=== PATIENT | male | born 1980 | race American Indian/Alaskan Native ===

== ENCOUNTER 2016-11-19 02:33 | Emergency (ER) | payer OTHER ==
[2016-11-19 02:40] VITALS: BMI 29.5
[2016-11-19 02:42] VITALS: BP 129/81; PULSE 115; RESP 18; TEMP 98.1; O2SAT 97
--- NOTE | 2016-11-19 03:01 | ED PDOC ---
HPI: General Adult Time Seen by Provider: 11/19/16 02:36 Chief Complaint (Nursing): Abnormal Skin Integrity Chief Complaint (Provider): "my butt is swollen" History Per: Patient History/Exam Limitations: no limitations Onset/Duration Of Symptoms: Days Have you had recent travel within the past 21 days to any of the following countries: [place], [place], [place] or [place]?: No Current Symptoms Are (Timing): Still Present Additional Complaint(s): Pt states when he wipes his BM he feels a swollen ball. Pt states sometimes its is a little tender. Past Medical History Reviewed: Historical Data, Nursing Documentation, Vital Signs Vital Signs: Last Vital Signs Temp 98.1 F 11/19/16 02:41 Pulse 115 H 11/19/16 02:41 Resp 18 11/19/16 02:41 BP 129/81 11/19/16 02:41 Pulse Ox 97 11/19/16 02:41 - Medical History PMH: No Chronic Diseases - Surgical History Surgical History: No Surg Hx - Family History Family History: States: Unknown Family Hx - Living Arrangements Living Arrangements: With Family - Social History Current smoker - smoking cessation education provided: No - Home Medications Home Medications: Ambulatory Orders Medication Instructions Recorded No Known Home Med 07/15/16 - Allergies Allergies/Adverse Reactions: Allergies Allergy/AdvReac Type Severity Reaction Status Date / Time No Known Allergies Allergy Verified 07/15/16 08:14 Review of Systems ROS Statement: Except As Marked, All Systems Reviewed And Found Negative Constitutional: Negative for: Fever Gastrointestinal: Positive for: Other Physical Exam - Reviewed Nursing Documentation Reviewed: Yes Vital Signs Reviewed: Yes - Physical Exam Appears: Positive for: Well, Non-toxic, No Acute Distress Head Exam: Positive for: ATRAUMATIC, NORMAL INSPECTION, NORMOCEPHALIC Skin: Positive for: Normal Color, Warm, DRY Eye Exam: Positive for: Normal appearance ENT: Positive for: Normal ENT Inspection Neck: Positive for: Normal, Painless ROM Cardiovascular/Chest: Positive for: Regular Rate, Rhythm Respiratory: Positive for: Normal Breath Sounds. Negative for: Accessory Muscle Use Gastrointestinal/Abdominal: Positive for: Normal Exam, Bowel Sounds, Soft, Tenderness, Other ((+) soft pink hemorrhoid ) Back: Positive for: Normal Inspection Extremity: Positive for: Normal ROM Neurologic/Psych: Positive for: Alert, Oriented - ECG O2 Sat by Pulse Oximetry: 97 Pulse Ox Interpretation: Normal Disposition - Clinical Impression Clinical Impression: External hemorrhoid - Patient ED Disposition Is Patient to be Admitted: No Counseled Patient/Family Regarding: Diagnosis, Need For Followup - Disposition Referrals: [facility] [Outside] Disposition: Routine/Home Disposition Time: 02:55 Condition: GOOD Instructions: Hemorrhoids (ED)
== END 2016-11-19 04:05 | disposition home or self-care (01) ==
LOC: H.ER 02:33
DX: K64.4 Residual hemorrhoidal skin tags (principal)

== ENCOUNTER 2017-12-14 09:06 | Inpatient (IN) | payer OTHER ==
[2017-12-14 09:17] VITALS: BMI 30.2
[2017-12-14] MEDS ORDERED: Iohexol 240 (50 ml) PO ONE (09:42)
--- NOTE | 2017-12-14 09:46 | ED PDOC ---
HPI: Abdomen Time Seen by Provider: 12/14/17 09:21 Chief Complaint (Nursing): Dizziness/Lightheaded History Per: Patient Onset/Duration Of Symptoms: Other (2 weeks) Current Symptoms Are (Timing): Still Present Context: Food Severity: Moderate Pain Scale Rating Of: 1 Location Of Pain/Discomfort: Epigastric Quality Of Discomfort: Gas Associated Symptoms: Nausea, Vomiting. denies: Diarrhea, Loss Of Appetite Exacerbating Factors: Food Alleviating Factors: None Additional Complaint(s): Epigastric fullness and early satiety after eating causing feeling of pressure up towards chest. Sxs x 2 weeks. Assoc with SOB and nausea and vomiting. Denies diarrhea or bloody or melanotic stools. Denies fever or weight loss. Has been avoiding solid foods x 2 weeks because they exacerbate sxs. Past Medical History Vital Signs: Last Vital Signs Temp 98.1 F 12/14/17 09:17 Pulse 109 H 12/14/17 09:17 Resp 17 12/14/17 09:17 BP 133/97 H 12/14/17 09:17 Pulse Ox 100 12/14/17 14:23 - Medical History PMH: No Chronic Diseases - Family History Family History: States: Unknown Family Hx - Home Medications Home Medications: Ambulatory Orders Medication Instructions Recorded No Known Home Med 07/15/16 - Allergies Allergies/Adverse Reactions: Allergies Allergy/AdvReac Type Severity Reaction Status Date / Time No Known Allergies Allergy Verified 07/15/16 08:14 Review of Systems ROS Statement: Except As Marked, All Systems Reviewed And Found Negative Constitutional: Negative for: Fever, Weight loss Respiratory: Positive for: Shortness of Breath Gastrointestinal: Positive for: Nausea, Vomiting, Abdominal Pain. Negative for : Melena, Hematochezia Physical Exam - Reviewed Nursing Documentation Reviewed: Yes Vital Signs Reviewed: Yes - Physical Exam Appears: Positive for: Non-toxic, No Acute Distress Head Exam: Positive for: ATRAUMATIC, NORMAL INSPECTION, NORMOCEPHALIC Skin: Positive for: Normal Color, Warm, DRY Eye Exam: Positive for: EOMI, Normal appearance, PERRL ENT: Positive for: Normal ENT Inspection Neck: Positive for: Normal, Painless ROM Cardiovascular/Chest: Positive for: Regular Rate, Rhythm Respiratory: Positive for: CNT, Normal Breath Sounds Gastrointestinal/Abdominal: Positive for: Soft, Distended. Negative for: Tenderness, Mass Back: Positive for: Normal Inspection Extremity: Positive for: Normal ROM Neurologic/Psych: Positive for: Alert, Oriented - Laboratory Results Result Diagrams: 12/14/17 10:02 12/14/17 10:02 - ECG O2 Sat by Pulse Oximetry: 100 Medical Decision Making Medical Decision Making: Time: 943 Plan: -- CT Abd Pelvis PO & IV -- EKG -- CMP -- Lipase -- CBC with differentials -- Chest XR Two Views -- Glucose, POC -- Iohexol 50 ml PO Time: 1022 CXR RESULTS FINDINGS: LUNGS: No active pulmonary disease. PLEURA: No significant pleural effusion identified. No pneumothorax apparent. CARDIOVASCULAR: Normal. OSSEOUS STRUCTURES: No significant abnormalities. VISUALIZED UPPER ABDOMEN: Normal. OTHER FINDINGS: None. IMPRESSION: No active disease. Time: 141 ABDOMEN/PELVIS CT RESULTS FINDINGS: LOWER THORAX: Unremarkable. LIVER: Unremarkable. No gross lesion or ductal dilatation. GALLBLADDER AND BILE DUCTS: Mild gallbladder wall thickening. Mild adjanent infiltration. Correlate clinically for acute cholecystitis.. PANCREAS: Unremarkable. No gross lesion or ductal dilatation. SPLEEN: Unremarkable. ADRENALS: Unremarkable. No mass. KIDNEYS AND URETERS: Unremarkable. No hydronephrosis. No solid mass. VASCULATURE: Unremarkable. No aortic aneurysm. BOWEL: Unremarkable. No obstruction. No gross mural thickening. APPENDIX: Normal appendix. PERITONEUM: Unremarkable. No free fluid. No free air. LYMPH NODES: Unremarkable. No enlarged lymph nodes. BLADDER: Unremarkable. REPRODUCTIVE: Unremarkable. BONES: No acute fracture. OTHER FINDINGS: None. IMPRESSION: Findings suspicious for cholecystitis. Please correlate clinically.. Scribe Attestation: Documented by Fabienne Plascencia, acting as a scribe for Dr. Oneil Kent MD. Provider Scribe Attestation: All medical record entries made by the Scribe were at my direction and personally dictated by me. I have reviewed the chart and agree that the record accurately reflects my personal performance of the history, physical exam, medical decision making, and the department course for this patient. I have also personally directed, reviewed, and agree with the discharge instructions and disposition. Disposition - Clinical Impression Clinical Impression: Cholecystitis - Patient ED Disposition Is Patient to be Admitted: Yes - Disposition Disposition Time: 14:25 Condition: FAIR Forms: [employer] (Syrian) - Pt Status Changed To: Hospital Disposition Of: Inpatient - Admit Certification Admit to Inpatient:: After my assessment, the patient will require hospitalization for at least two midnights. This is because of the severity of symptoms shown, intensity of services needed, and/or the medical risk in this patient being treated as an outpatient. - POA Present On Arrival: None
[2017-12-14 10:08] LABS: BASO # 0.1 K/uL (0.0-0.2); BASO % 0.7 % (0.0-2.0); EOS % 0.1 % (0.0-4.0); HEMOGLOBIN 14.9 g/dL (12.0-18.0); LYMPH # 2.7 K/uL (1.0-4.3); LYMPH % 23.3 % (20.0-40.0); MEAN CELL VOLUME 85.9 fl (80.0-94.0); MEAN CORPUSCULAR HEMOGLOBIN 28.5 pg (27.0-31.0); MEAN CORPUSCULAR HGB CONC 33.1 g/dL (33.0-37.0); MEAN PLATELET VOLUME 7.7 fl (7.2-11.7); MONO # 0.8 K/uL (0.0-0.8); NEUT % 68.9 % (50.0-75.0); NRBC % 0.1 % (0.0-0.0); RBC 5.25 Mil/uL (4.40-5.90); RED CELL DISTRIBUTION WIDTH 14.7 % (11.5-14.5); WHITE BLOOD COUNT 11.7 K/uL (4.8-10.8)
[2017-12-14 10:21] LABS: ALB/GLOB RATIO 1.5 (1.0-2.1); ALT/SGPT 101 U/L (21-72); AST/SGOT 85 U/L (17-59); BLOOD UREA NITROGEN 18 mg/dl (9-20); CALCIUM 9.3 mg/dL (8.4-10.2); GFR AFRICAN-AMERICAN > 60; GFR NON-AFRICAN AMERICAN > 60; LIPASE 48 U/L (23-300)
--- NOTE | 2017-12-14 10:23 | RAD ---
HISTORY: sob COMPARISON: No prior. TECHNIQUE: Chest PA and lateral FINDINGS: LUNGS: No active pulmonary disease. PLEURA: No significant pleural effusion identified. No pneumothorax apparent. CARDIOVASCULAR: Normal. OSSEOUS STRUCTURES: No significant abnormalities. VISUALIZED UPPER ABDOMEN: Normal. OTHER FINDINGS: None. IMPRESSION: No active disease.
[2017-12-14] MEDS ORDERED: Sodium Chloride 0.9% 100 ML ONE (12:24)
[2017-12-14] MEDS ORDERED: Iohexol 300 100 ML IJ ONE (12:24)
--- NOTE | 2017-12-14 14:14 | CT ---
PROCEDURE: CT Abdomen and Pelvis with contrast HISTORY: abd pain COMPARISON: None. TECHNIQUE: Contrast dose: Radiation dose: Total exam DLP = mGy-cm. This CT exam was performed using one or more of the following dose reduction techniques: Automated exposure control, adjustment of the mA and/or kV according to patient size, and/or use of iterative reconstruction technique. FINDINGS: LOWER THORAX: Unremarkable. LIVER: Unremarkable. No gross lesion or ductal dilatation. GALLBLADDER AND BILE DUCTS: Mild gallbladder wall thickening. Mild adjanent infiltration. Correlate clinically for acute cholecystitis.. PANCREAS: Unremarkable. No gross lesion or ductal dilatation. SPLEEN: Unremarkable. ADRENALS: Unremarkable. No mass. KIDNEYS AND URETERS: Unremarkable. No hydronephrosis. No solid mass. VASCULATURE: Unremarkable. No aortic aneurysm. BOWEL: Unremarkable. No obstruction. No gross mural thickening. APPENDIX: Normal appendix. PERITONEUM: Unremarkable. No free fluid. No free air. LYMPH NODES: Unremarkable. No enlarged lymph nodes. BLADDER: Unremarkable. REPRODUCTIVE: Unremarkable. BONES: No acute fracture. OTHER FINDINGS: None. IMPRESSION: Findings suspicious for cholecystitis. Please correlate clinically..
[2017-12-14] MEDS ORDERED: Piperacillin/Tazobact 3.375 GM in Sodium Chloride 0.9% 100 ML IVPB STA (14:21)
[2017-12-14] MEDS ORDERED: Piperacillin/Tazobact 3.375 gm Inj IVPB ONE (14:27)
[2017-12-14] MEDS ORDERED: HYDROmorphone 0.5 mg/0.5 ml ISec IVP PRN (15:07)
[2017-12-14] MEDS ORDERED: Oxycodone/Acetaminophen 5/325 mg Tab PO PRN (15:09)
--- NOTE | 2017-12-14 15:13 | CP.PCM.CON ---
History of Present Illness - History of Present Illness History of Present Illness: Surgery 37 M w ho HTN came with epigastric abd pain started 2 weeks ago. pain is associated with food. Located on EPigastric area. Doesn't radiate to back. Pain is worsen with movement. REports non bloody non bilious vomiting and nausea. Also reports weakness and SOB. Denies fever, chill, diarrhea, chest pain, recent travels, sick contact, hematuria, hematemesis, hematochezia. Surgery is consulted to evaluate for cholecystitis. CT of abd shows thicken GB wall. Denies h/o GERD, hiatal hernia. Hasn't had endoscopy before. PMH : HTN PSH: denies Meds: none Review of Systems - Review of Systems Review of Systems: See HPI Past Patient History - Past Social History Smoking Status: Heavy Smoker > 10 Cigarettes Daily - CARDIAC Hx Cardiac Disorders: No - PULMONARY Hx Respiratory Disorders: No - NEUROLOGICAL Hx Neurological Disorder: No - HEENT Hx HEENT Problems: No - RENAL Hx Chronic Kidney Disease: No - ENDOCRINE/METABOLIC Hx Endocrine Disorders: No - HEMATOLOGICAL/ONCOLOGICAL Hx Blood Disorders: No - INTEGUMENTARY Hx Dermatological Problems: No - MUSCULOSKELETAL/RHEUMATOLOGICAL Hx Musculoskeletal Disorders: No - GENITOURINARY/GYNECOLOGICAL Hx Genitourinary Disorders: No - PSYCHIATRIC Hx Psychophysiologic Disorder: No - SURGICAL HISTORY Hx Surgeries: No - ANESTHESIA Hx Anesthesia: No Meds Allergies/Adverse Reactions: Allergies Allergy/AdvReac Type Severity Reaction Status Date / Time No Known Allergies Allergy Verified 07/15/16 08:14 - Medications Medications: Current Medications Acetaminophen (Tylenol 325mg Tab) 650 mg PO Q6 PRN PRN Reason: Fever >100.4 F Hydromorphone HCl (Dilaudid) 1 mg IVP Q4 PRN PRN Reason: Pain, severe (8-10) Piperacillin Sod/Tazobactam (Sod 3.375 gm/ Sodium Chloride) 100 mls @ 100 mls/ hr IVPB STAT STA PRN Reason: Protocol Stop: 12/14/17 15:20 Last Admin: 12/14/17 14:45 Dose: 100 mls/hr Sodium Chloride (Sodium Chloride 0.9%) 1,000 mls @ 100 mls/hr IV .Q10H IVÁN Stop: 12/15/17 15:08 Ondansetron HCl (Zofran Inj) 4 mg IVP Q4 PRN PRN Reason: Nausea/Vomiting Physical Exam - Constitutional Appears: No Acute Distress - Head Exam Head Exam: ATRAUMATIC, NORMAL INSPECTION, NORMOCEPHALIC - Eye Exam Eye Exam: EOMI, Normal appearance, PERRL Pupil Exam: NORMAL ACCOMODATION, PERRL - ENT Exam ENT Exam: Mucous Membranes Moist, Normal Exam - Neck Exam Neck exam: Positive for: Normal Inspection - Respiratory Exam Respiratory Exam: Clear to Auscultation Bilateral, NORMAL BREATHING PATTERN - Cardiovascular Exam Cardiovascular Exam: REGULAR RHYTHM - GI/Abdominal Exam GI & Abdominal Exam: Guarding, Normal Bowel Sounds, Soft, Tenderness. absent: Distended, Firm, Hernia, Mass, Organomegaly, Pulsatile Mass, Rebound, Rigid Additional comments: Epigatric TTP. - Rectal Exam Rectal Exam: NORMAL INSPECTION - Extremities Exam Extremities exam: Positive for: normal inspection - Back Exam Back exam: NORMAL INSPECTION - Neurological Exam Neurological exam: Alert, CN II-XII Intact, Normal Gait, Oriented x3, Reflexes Normal - Psychiatric Exam Psychiatric exam: Normal Affect, Normal Mood - Skin Skin Exam: Dry, Intact, Normal Color, Warm Results - Vital Signs Recent Vital Signs: Last Vital Signs Temp 98.1 F 12/14/17 09:17 Pulse 109 H 12/14/17 09:17 Resp 17 12/14/17 09:17 BP 133/97 H 12/14/17 09:17 Pulse Ox 100 12/14/17 14:25 - Labs Result Diagrams: 12/14/17 10:02 12/14/17 10:02 Labs: Laboratory Results - last 24 hr 12/14/17 12/14/17 12/14/17 09:47 10:02 10:02 WBC 11.7 H RBC 5.25 Hgb 14.9 Hct 45.0 MCV 85.9 MCH 28.5 MCHC 33.1 RDW 14.7 H Plt Count 278 MPV 7.7 Neut % (Auto) 68.9 Lymph % (Auto) 23.3 [place] % (Auto) 7.0 Eos % (Auto) 0.1 Baso % (Auto) 0.7 Neut # (Auto) 8.0 H Lymph # (Auto) 2.7 [place] # (Auto) 0.8 Eos # (Auto) 0.0 Baso # (Auto) 0.1 Sodium 139 Potassium 4.8 Chloride 106 Carbon Dioxide 19 L Anion Gap 19 BUN 18 Creatinine 0.9 Est GFR ( Amer) > 60 Est GFR (Non-Af Amer) > 60 POC Glucose (mg/dL) 83 Random Glucose 95 Calcium 9.3 Total Bilirubin 0.7 AST 85 H ALT 101 H D Alkaline Phosphatase 58 Total Protein 6.7 Albumin 4.0 Globulin 2.7 Albumin/Globulin Ratio 1.5 Lipase 48 Assessment & Plan - Assessment and Plan (Free Text) Assessment: Symptomatic cholelithiasis v acute cholecystitis -Plan on OR on Sat -NPO after midnight on Saturday AM -IVF -f/u US KATIE Elmore's PA
--- NOTE | 2017-12-14 16:03 | CP.PCM.HP ---
History of Present Illness - History of Present Illness History of Present Illness: 37 yo , m , PMhx ETOH abuse, smoker. presents c/o epigastric abdominal pain started 3 weeks ago, intermittent , 5/10 intensity, not radiated, postprandial, associated with occs nausea, 1 nonbloddy vomiting today, heartburn and mild SOB when in pain . Pain is worse with food, on exertion while working, and on when turning to left in lying down position. He denies fever, chest pain,cough, dysuria,hx/o gastritis, odd food ingestion, h/xo chest pain. On evaluation in ED patient comfortable, not in distress, reports abd pain subsided with medication. PMD: CFH. Last seen by Dr GUZMAN 12/2016 PMH: Smoker. ETOH abuse Allergies: NKDA Meds: None Psurghx: None PFHx: Father has pacemaker and from [place] at age 49. PSHX: Smoker for 15 years 1 PPD. Cutting down to 5 cg/day recently. ETOH abuse by [employer] (drinks 3-4 beers per day, and usually washes it down with 2 shots of vodka, CAGE: 2/4 (clinically signifcant) notes 12/2016. Patient only reports social drinker occs. Denies rect drugs Code status: full code ED course: VS: HR: 109 BP: 133/97 Labs:CBC: wbc: 11.7 not lef shift deviation. , lipase normal EKG: sinus tachy. Biatrial enlargement. T wave abnormality. Consider lateral ischemia. T wave neg DII, AVF, V5-V6 Imaging: -CT abd: thickening gallbladder. Suspicious cholecystitis.-Us Abd: pending reports Meds: zosyn. Iv fluids NS 100ml/h Case seen by surgery. f/u US. For OR Saturday Present on Admission - Present on Admission Any Indicators Present on Admission: No History of DVT/PE: No History of Uncontrolled Diabetes: No Urinary Catheter: No Decubitus Ulcer Present: No Review of Systems - Review of Systems All systems: reviewed and no additional remarkable complaints except - Cardiovascular Cardiovascular: As Per HPI - Respiratory Respiratory: As Per HPI - Gastrointestinal Gastrointestinal: Abdominal Pain, Heartburn, Nausea Past Patient History - Past Social History Smoking Status: Heavy Smoker > 10 Cigarettes Daily - CARDIAC Hx Cardiac Disorders: No - PULMONARY Hx Respiratory Disorders: No - NEUROLOGICAL Hx Neurological Disorder: No - HEENT Hx HEENT Problems: No - RENAL Hx Chronic Kidney Disease: No - ENDOCRINE/METABOLIC Hx Endocrine Disorders: No - HEMATOLOGICAL/ONCOLOGICAL Hx Blood Disorders: No - INTEGUMENTARY Hx Dermatological Problems: No - MUSCULOSKELETAL/RHEUMATOLOGICAL Hx Musculoskeletal Disorders: No - GENITOURINARY/GYNECOLOGICAL Hx Genitourinary Disorders: No - PSYCHIATRIC Hx Psychophysiologic Disorder: No - SURGICAL HISTORY Hx Surgeries: No - ANESTHESIA Hx Anesthesia: No Meds Allergies/Adverse Reactions: Allergies Allergy/AdvReac Type Severity Reaction Status Date / Time No Known Allergies Allergy Verified 07/15/16 08:14 Physical Exam - Constitutional Appears: Non-toxic, No Acute Distress - Head Exam Head Exam: ATRAUMATIC, NORMOCEPHALIC - Eye Exam Eye Exam: Normal appearance - ENT Exam ENT Exam: Mucous Membranes Moist - Respiratory Exam Respiratory Exam: Clear to Auscultation Bilateral. absent: Rhonchi, Wheezes - Cardiovascular Exam Cardiovascular Exam: REGULAR RHYTHM, +S1, +S2 - GI/Abdominal Exam GI & Abdominal Exam: Normal Bowel Sounds, Soft, Tenderness. absent: Guarding Additional comments: Mild tenderness on epigastric area. no Todd sign - Extremities Exam Extremities exam: Positive for: normal inspection. Negative for: pedal edema - Neurological Exam Neurological exam: Alert, Oriented x3 - Psychiatric Exam Psychiatric exam: Normal Affect, Normal Mood - Skin Skin Exam: Intact Results - Vital Signs Recent Vital Signs: Last Vital Signs Temp 98.2 F 12/14/17 15:50 Pulse 75 12/14/17 15:50 Resp 16 12/14/17 15:50 BP 124/80 12/14/17 15:50 Pulse Ox 100 12/14/17 15:50 - Labs Result Diagrams: 12/14/17 10:02 12/14/17 10:02 Labs: Laboratory Results - last 24 hr 12/14/17 12/14/17 12/14/17 09:47 10:02 10:02 WBC 11.7 H RBC 5.25 Hgb 14.9 Hct 45.0 MCV 85.9 MCH 28.5 MCHC 33.1 RDW 14.7 H Plt Count 278 MPV 7.7 Neut % (Auto) 68.9 Lymph % (Auto) 23.3 [place] % (Auto) 7.0 Eos % (Auto) 0.1 Baso % (Auto) 0.7 Neut # (Auto) 8.0 H Lymph # (Auto) 2.7 [place] # (Auto) 0.8 Eos # (Auto) 0.0 Baso # (Auto) 0.1 Sodium 139 Potassium 4.8 Chloride 106 Carbon Dioxide 19 L Anion Gap 19 BUN 18 Creatinine 0.9 Est GFR ( Amer) > 60 Est GFR (Non-Af Amer) > 60 POC Glucose (mg/dL) 83 Random Glucose 95 Calcium 9.3 Total Bilirubin 0.7 AST 85 H ALT 101 H D Alkaline Phosphatase 58 Total Protein 6.7 Albumin 4.0 Globulin 2.7 Albumin/Globulin Ratio 1.5 Lipase 48 Assessment & Plan - Assessment and Plan (Free Text) Plan: 37 yo , m , no significant PMhx admitted for Acute cholecystitis Assessment/Plan 1) Acute cholecystitis -epigastric abd pain associated with n,v -leukocytosis 11.7. No left shift deviation, lipase normal -CT abd: thickening gallbladder. Suspicious cholecystitis. -Us Abd: pending reports -Surgery consult appreciated: patient for OR on Saturday -Liquid diet s/p Zosyn in ED. c/w zosyn, pepcid PO -f/u CBC, CMP 2) Transaminitis -may be reactive secondary to acute cholecystitis -AST .Alt 85/101 -F/u CMP 3) Abnormal EKG -may be secondary to early CAD -smoker, ETOH abuse, -FHx father from [place] at age 50 -EKG: sinus tachy. Biatrial enlargement. T wave abnormality. Consider lateral ischemia. T wave neg DII, AVF, V5-V6 -denies chest pain -troponin x 1 neg -may need Cardiology clearance before surgery -consider Echo -f/u EKG 4) Tabacco abuse Nicotine patch 5) ETOH abuse -with associated transaminitis 2/2 cholecystitis -f/u abd us 6) DVT Prophylaxis -SCD. Pending surgery
[2017-12-14] MEDS: Sodium Chloride 0.9% 1,000 ML IV SCH (17:13)
[2017-12-14] MEDS: Piperacillin/Tazobact 3.375 GM in Sodium Chloride 0.9% 100 ML IVPB SCH (21:52)
[2017-12-15] MEDS: Sodium Chloride 0.9% 1,000 ML IV SCH ×5 (01:00→23:51)
[2017-12-15] MEDS: Piperacillin/Tazobact 3.375 GM in Sodium Chloride 0.9% 100 ML IVPB SCH ×4 (04:27→21:45)
[2017-12-15 07:27] LABS: HEMOGLOBIN 14.2 g/dL (12.0-18.0); MEAN CELL VOLUME 87.1 fl (80.0-94.0); MEAN CORPUSCULAR HEMOGLOBIN 28.3 pg (27.0-31.0); MEAN CORPUSCULAR HGB CONC 32.5 g/dL (33.0-37.0); RBC 5.01 Mil/uL (4.40-5.90); RED CELL DISTRIBUTION WIDTH 14.7 % (11.5-14.5); WHITE BLOOD COUNT 9.9 K/uL (4.8-10.8)
[2017-12-15 07:40] LABS: LDL CHOLESTEROL 116 mg/dL (0-129)
[2017-12-15 07:54] LABS: ALB/GLOB RATIO 1.1 (1.0-2.1); ALBUMIN 3.1 g/dL (3.5-5.0); ALT/SGPT 90 U/L (21-72); AST/SGOT 51 U/L (17-59); BLOOD UREA NITROGEN 15 mg/dl (9-20); CALCIUM 8.7 mg/dL (8.4-10.2); GFR AFRICAN-AMERICAN > 60; GFR NON-AFRICAN AMERICAN > 60; HDL CHOLESTEROL 28 MG/DL (30-70)
--- NOTE | 2017-12-15 08:20 | CP.PCM.PN ---
<Nancie Diaz - Last Filed: 12/15/17 08:18> Subjective - Date & Time of Evaluation Date of Evaluation: 12/15/17 Time of Evaluation: 08:18 - Subjective Subjective: Surgery Patient seen and examined. Pain controlled. denies fever, nausea. Tolerating CLD. + void Objective - Vital Signs/Intake and Output Vital Signs (last 24 hours): Temp Pulse Resp BP Pulse Ox 98.6 F 95 H 20 139/99 H 98 12/15/17 00:12 12/15/17 00:12 12/15/17 00:12 12/15/17 00:12 12/15/17 00:12 - Medications Medications: Current Medications Acetaminophen (Tylenol 325mg Tab) 650 mg PO Q6 PRN PRN Reason: Fever >100.4 F Hydromorphone HCl (Dilaudid) 1 mg IVP Q4 PRN PRN Reason: Pain, severe (8-10) Sodium Chloride (Sodium Chloride 0.9%) 1,000 mls @ 100 mls/hr IV .Q10H [facility] Stop: 12/15/17 15:08 Last Admin: 12/15/17 04:36 Dose: 100 mls/hr Piperacillin Sod/Tazobactam (Sod 3.375 gm/ Sodium Chloride) 100 mls @ 100 mls/ hr IVPB Q6 IVÁN PRN Reason: Protocol Last Admin: 12/15/17 04:27 Dose: 100 mls/hr Nicotine (Nicoderm Cq) 1 patch TD DAILY [facility] Ondansetron HCl (Zofran Inj) 4 mg IVP Q4 PRN PRN Reason: Nausea/Vomiting Oxycodone/Acetaminophen (Percocet 5/325 Mg Tab) 2 tab PO Q4 PRN PRN Reason: Pain, moderate (4-7) Stop: 12/17/17 15:10 - Labs Labs: 12/15/17 05:30 12/15/17 05:30 - Constitutional Appears: No Acute Distress - Head Exam Head Exam: ATRAUMATIC, NORMAL INSPECTION, NORMOCEPHALIC - Eye Exam Eye Exam: EOMI, Normal appearance, PERRL Pupil Exam: NORMAL ACCOMODATION, PERRL - ENT Exam ENT Exam: Mucous Membranes Moist, Normal Exam - Neck Exam Neck Exam: Full ROM, Normal Inspection. absent: Lymphadenopathy - Respiratory Exam Respiratory Exam: Clear to Ausculation Bilateral, NORMAL BREATHING PATTERN - Cardiovascular Exam Cardiovascular Exam: REGULAR RHYTHM, +S1, +S2. absent: Murmur - GI/Abdominal Exam GI & Abdominal Exam: Soft, Tenderness, Normal Bowel Sounds. absent: Distended, Firm, Guarding, Rigid Additional comments: RUQ epigastric TTP - Extremities Exam Extremities Exam: Full ROM, Normal Capillary Refill, Normal Inspection. absent : Joint Swelling, Pedal Edema - Back Exam Back Exam: NORMAL INSPECTION - Neurological Exam Neurological Exam: Alert, Awake, CN II-XII Intact, Normal Gait, Oriented x3 - Psychiatric Exam Psychiatric exam: Normal Affect, Normal Mood - Skin Skin Exam: Dry, Intact, Normal Color, Warm Assessment and Plan - Assessment and Plan (Free Text) Assessment: Symptomatic cholelithiasis v acute cholecystitis US: thicken GB wall 4.5mm -Plan on OR on Sat -NPO after midnight on Saturday AM -IVF DW Dr. Elmore's PA <Fernando Elmore - Last Filed: 12/15/17 09:41> Objective - Vital Signs/Intake and Output Vital Signs (last 24 hours): Temp Pulse Resp BP Pulse Ox 98.2 F 89 16 125/89 99 12/15/17 09:00 12/15/17 09:00 12/15/17 09:00 12/15/17 09:00 12/15/17 09:00 - Medications Medications: Current Medications Acetaminophen (Tylenol 325mg Tab) 650 mg PO Q6 PRN PRN Reason: Fever >100.4 F Hydromorphone HCl (Dilaudid) 1 mg IVP Q4 PRN PRN Reason: Pain, severe (8-10) Sodium Chloride (Sodium Chloride 0.9%) 1,000 mls @ 100 mls/hr IV .Q10H [facility] Stop: 12/15/17 15:08 Last Admin: 12/15/17 04:36 Dose: 100 mls/hr Piperacillin Sod/Tazobactam (Sod 3.375 gm/ Sodium Chloride) 100 mls @ 100 mls/ hr IVPB Q6 IVÁN PRN Reason: Protocol Last Admin: 12/15/17 04:27 Dose: 100 mls/hr Nicotine (Nicoderm Cq) 1 patch TD DAILY [facility] Last Admin: 12/15/17 08:25 Dose: 1 patch Ondansetron HCl (Zofran Inj) 4 mg IVP Q4 PRN PRN Reason: Nausea/Vomiting Oxycodone/Acetaminophen (Percocet 5/325 Mg Tab) 2 tab PO Q4 PRN PRN Reason: Pain, moderate (4-7) Stop: 12/17/17 15:10 - Labs Labs: 12/15/17 05:30 12/15/17 05:30 Assessment and Plan - Assessment and Plan (Free Text) Plan: lft's rising, will get MRCP
--- NOTE | 2017-12-15 08:35 | US ---
HISTORY: cholecystitis COMPARISON: None. TECHNIQUE: Sonographic evaluation of the right upper quadrant of the abdomen. FINDINGS: LIVER: Measures cm in length. Normal echogenicity of the liver parenchyma. No mass. No intrahepatic bile duct dilatation. GALLBLADDER: Mild pericholecystic fluid ; no gross gallstones observed. COMMON BILE DUCT: Measures mm. No stones. No dilatation. PANCREAS: Unremarkable as visualized. No mass. No ductal dilatation. RIGHT KIDNEY: Measures cm in length. Normal echogenicity. No calculus, mass, or hydronephrosis. AORTA: No aneurysmal dilatation. IVC: Unremarkable. OTHER FINDINGS: None . IMPRESSION: Mild pericholecystic fluid ; no gross gallstones observed.
--- NOTE | 2017-12-15 13:57 | CP.PCM.PN ---
Subjective - Date & Time of Evaluation Date of Evaluation: 12/15/17 Time of Evaluation: 11:55 - Subjective Subjective: Patient seen and examined with attending at bedside. No acute events overnight. Patient states he feels better. Denies abdominal pain though occasional feelings of discomfort/bloating. Patient tolerating PO at this time. Denies fever, chills, nausea, vomiting, constipation, chest pain, sob, palpitations. 1 episode of loose stool overnight. No other complaints at this time. Surgery saw patient in AM. Objective - Vital Signs/Intake and Output Vital Signs (last 24 hours): Temp Pulse Resp BP Pulse Ox 98.2 F 89 16 125/89 99 12/15/17 09:00 12/15/17 09:00 12/15/17 09:00 12/15/17 09:00 12/15/17 09:00 - Medications Medications: Current Medications Acetaminophen (Tylenol 325mg Tab) 650 mg PO Q6 PRN PRN Reason: Fever >100.4 F Hydromorphone HCl (Dilaudid) 1 mg IVP Q4 PRN PRN Reason: Pain, severe (8-10) Sodium Chloride (Sodium Chloride 0.9%) 1,000 mls @ 100 mls/hr IV .Q10H [facility] Stop: 12/15/17 15:08 Last Admin: 12/15/17 13:13 Dose: Not Given Piperacillin Sod/Tazobactam (Sod 3.375 gm/ Sodium Chloride) 100 mls @ 100 mls/ hr IVPB Q6 IVÁN PRN Reason: Protocol Last Admin: 12/15/17 10:25 Dose: 100 mls/hr Nicotine (Nicoderm Cq) 1 patch TD DAILY [facility] Last Admin: 12/15/17 08:25 Dose: 1 patch Ondansetron HCl (Zofran Inj) 4 mg IVP Q4 PRN PRN Reason: Nausea/Vomiting Oxycodone/Acetaminophen (Percocet 5/325 Mg Tab) 2 tab PO Q4 PRN PRN Reason: Pain, moderate (4-7) Stop: 12/17/17 15:10 - Labs Labs: 12/15/17 05:30 12/15/17 05:30 - Constitutional Appears: Well, Non-toxic, No Acute Distress - Head Exam Head Exam: ATRAUMATIC, NORMAL INSPECTION, NORMOCEPHALIC - Eye Exam Eye Exam: Normal appearance - Respiratory Exam Respiratory Exam: Clear to Ausculation Bilateral, NORMAL BREATHING PATTERN - Cardiovascular Exam Cardiovascular Exam: REGULAR RHYTHM, +S1, +S2. absent: Murmur - GI/Abdominal Exam GI & Abdominal Exam: Soft, Tenderness (ruq/epigastric with grimacing noted, negative murphys sign), Normal Bowel Sounds - Extremities Exam Extremities Exam: Normal Inspection - Neurological Exam Neurological Exam: Alert, Awake, Oriented x3 - Psychiatric Exam Psychiatric exam: Normal Affect, Normal Mood - Skin Skin Exam: Dry, Intact, Normal Color, Warm Assessment and Plan - Assessment and Plan (Free Text) Assessment: 37 yo male smoker with no chronic diseases admitted for Acute cholecystitis. 1) Acute cholecystitis -epigastric abd pain associated with n,v -leukocytosis 11.7. No left shift deviation, lipase normal -no leukocytosis present today -CT abd: thickening gallbladder. Suspicious cholecystitis. -Us Abd: pending reports -Surgery recommendations appreciated, MRCP pending -c/w Liquid diet -c/w zosyn -c/w pepcid -c/w pain meds/antiemetics as needed -f/u CBC, CMP 2) Transaminitis -Improved AST/ALT though Total bilirubin increased to 1.6 -Surgery ordered MRCP, will likely be completed tomorrow -F/u CMP 3) Abnormal EKG -may be secondary to early CAD -smoker, ETOH abuse, Family Hx significant for father from [place] at age 50 -EKG: sinus tachy. Biatrial enlargement. T wave abnormality. Consider lateral ischemia. T wave neg DII, AVF, V5-V6 -repeat ekg shows the same -lipid panel reviewed -denies chest pain -troponin x 3 neg -Bat Person consulted, pending eval 4) Tobacco abuse -Nicotine patch 5) DVT Prophylaxis -SCD. Pending surgery
[2017-12-16] MEDS: Piperacillin/Tazobact 3.375 GM in Sodium Chloride 0.9% 100 ML IVPB SCH ×3 (04:59→17:34)
[2017-12-16] MEDS: Sodium Chloride 0.9% 1,000 ML IV SCH (05:00)
[2017-12-16 06:43] LABS: HEMOGLOBIN 14.2 g/dL (12.0-18.0); MEAN CELL VOLUME 86.3 fl (80.0-94.0); MEAN CORPUSCULAR HEMOGLOBIN 28.3 pg (27.0-31.0); MEAN CORPUSCULAR HGB CONC 32.8 g/dL (33.0-37.0); RBC 5.04 Mil/uL (4.40-5.90); RED CELL DISTRIBUTION WIDTH 14.4 % (11.5-14.5); WHITE BLOOD COUNT 10.4 K/uL (4.8-10.8)
[2017-12-16 07:00] LABS: ALB/GLOB RATIO 1.1 (1.0-2.1); ALBUMIN 2.9 g/dL (3.5-5.0); ALT/SGPT 79 U/L (21-72); AST/SGOT 35 U/L (17-59); BLOOD UREA NITROGEN 11 mg/dl (9-20); CALCIUM 8.5 mg/dL (8.4-10.2); GFR AFRICAN-AMERICAN > 60; GFR NON-AFRICAN AMERICAN > 60
[2017-12-16 07:09] LABS: INR 1.4 (0.9-1.2); PROTHROMBIN TIME 15.8 Seconds (9.8-13.1)
--- NOTE | 2017-12-16 07:30 | CP.PCM.PN ---
Subjective - Date & Time of Evaluation Date of Evaluation: 12/16/17 Time of Evaluation: 10:10 - Subjective Subjective: Patient seen and examined at bedside this morning. Pt had MRCP and HIDA done this morning pending results. No acute events overnight. Patient states he feels better except for occasional pain yesterday. States intermittent watery diarrhea for last few days. Denies current abdominal pain. Patient is on NPO this morning for lap jared tomorrow. Denies fever, chills, nausea, vomiting, constipation, chest pain, sob, palpitations. No other complaints at this time. Objective - Vital Signs/Intake and Output Vital Signs (last 24 hours): Temp Pulse Resp BP Pulse Ox 98.4 F 97 H 17 141/97 H 100 12/16/17 01:00 12/16/17 01:00 12/16/17 01:00 12/16/17 01:00 12/16/17 01:00 - Medications Medications: Current Medications Acetaminophen (Tylenol 325mg Tab) 650 mg PO Q6 PRN PRN Reason: Fever >100.4 F Hydromorphone HCl (Dilaudid) 1 mg IVP Q4 PRN PRN Reason: Pain, severe (8-10) Piperacillin Sod/Tazobactam (Sod 3.375 gm/ Sodium Chloride) 100 mls @ 100 mls/ hr IVPB Q6 IVÁN PRN Reason: Protocol Last Admin: 12/16/17 04:59 Dose: 100 mls/hr Sodium Chloride (Sodium Chloride 0.9%) 1,000 mls @ 125 mls/hr IV .Q8H [facility] Stop: 12/16/17 19:54 Last Admin: 12/16/17 05:00 Dose: Not Given Nicotine (Nicoderm Cq) 1 patch TD DAILY [facility] Last Admin: 12/15/17 08:25 Dose: 1 patch Ondansetron HCl (Zofran Inj) 4 mg IVP Q4 PRN PRN Reason: Nausea/Vomiting Oxycodone/Acetaminophen (Percocet 5/325 Mg Tab) 2 tab PO Q4 PRN PRN Reason: Pain, moderate (4-7) Stop: 12/17/17 15:10 - Labs Labs: 12/16/17 05:45 12/16/17 05:45 PT 15.8 Seconds (9.8-13.1) H 12/16/17 05:45 INR 1.4 (0.9-1.2) H 12/16/17 05:45 - Additional Findings Additional findings: - Constitutional Appears: Well, Non-toxic, No Acute Distress - Head Exam Head Exam: ATRAUMATIC, NORMAL INSPECTION, NORMOCEPHALIC - Eye Exam Eye Exam: Normal appearance - Respiratory Exam Respiratory Exam: Clear to Ausculation Bilateral, NORMAL BREATHING PATTERN - Cardiovascular Exam Cardiovascular Exam: REGULAR RHYTHM, +S1, +S2. absent: Murmur - GI/Abdominal Exam GI & Abdominal Exam: Soft, Mild tenderness in RUQ/epigastric area, no rebound tenderness or guarding. Negative murphys sign. Normal Bowel Sounds - Extremities Exam Extremities Exam: Normal Inspection - Neurological Exam Neurological Exam: Alert, Awake, Oriented x3 - Psychiatric Exam Psychiatric exam: Normal Affect, Normal Mood - Skin Skin Exam: Dry, Intact, Normal Color, Warm Assessment and Plan - Assessment and Plan (Free Text) Assessment: 37 yo male smoker with no chronic diseases admitted for Acute cholecystitis and has abnormal EKG 1) Acute cholecystitis -Epigastric abd pain associated with nausea and vomiting -leukocytosis 11.7 on admission. No left shift deviation, lipase normal -no leukocytosis present today -CT abd: thickening gallbladder. Suspicious cholecystitis. -Us Abd: pending reports -Surgery recommendations appreciated. -MRCP: Impression: findings remain suspicious for cholecystitis. No choledocholithiasis or dilatation of the intra or extrahepatic biliary tress. -f/u on HIDA, if HYDA is positive, lap jared tomorrow, if negative, outpatient surgery per surgery recommendation -c/w zosyn -c/w pepcid -c/w pain meds/antiemetics as needed 2) Transaminitis -Improved AST/ALT though Total bilirubin increased to 1.6 -MRCP: Impression: findings remain suspicious for cholecystitis. No choledocholithiasis or dilatation of the intra or extrahepatic biliary tress. -F/u CMP 3) Abnormal EKG -may be secondary to early CAD -smoker, ETOH abuse, Family Hx significant for father from [place] at age 50 -EKG: sinus tachy. Biatrial enlargement. T wave abnormality. Consider lateral ischemia. T wave neg DII, AVF, V5-V6 -repeat ekg shows the same -lipid panel reviewed -denies chest pain -troponin x 3 neg -Customer Care Assistant consult appreciated: cleared for surgery 4) Tobacco abuse -Nicotine patch 5) DVT Prophylaxis -SCD. Pending surgery
[2017-12-16] MEDS ORDERED: Gadodiamide 287 MG/ML VIAL (15ML) IV ONE (07:48)
--- NOTE | 2017-12-16 09:37 | CP.PCM.CON ---
History of Present Illness - History of Present Illness History of Present Illness: 37 y/o male scheduled for cholecstectomy Cardiology consult called for clearance Pt denies any cardiac Hx Denies chest pain/MADSEN/SOB/Palpitations EKG: NSR / inverted T waves Most likely represents normal variant Past Patient History - Past Medical History & Family History Past Medical History?: No - Past Social History Smoking Status: Heavy Smoker > 10 Cigarettes Daily - CARDIAC Hx Cardiac Disorders: No - PULMONARY Hx Respiratory Disorders: No - NEUROLOGICAL Hx Neurological Disorder: No - HEENT Hx HEENT Problems: No - RENAL Hx Chronic Kidney Disease: No - ENDOCRINE/METABOLIC Hx Endocrine Disorders: No - HEMATOLOGICAL/ONCOLOGICAL Hx Blood Disorders: No - INTEGUMENTARY Hx Dermatological Problems: No - MUSCULOSKELETAL/RHEUMATOLOGICAL Hx Musculoskeletal Disorders: No - GENITOURINARY/GYNECOLOGICAL Hx Genitourinary Disorders: No - PSYCHIATRIC Hx Psychophysiologic Disorder: No - SURGICAL HISTORY Hx Surgeries: No - ANESTHESIA Hx Anesthesia: No Meds Allergies/Adverse Reactions: Allergies Allergy/AdvReac Type Severity Reaction Status Date / Time No Known Allergies Allergy Verified 07/15/16 08:14 - Medications Medications: Current Medications Acetaminophen (Tylenol 325mg Tab) 650 mg PO Q6 PRN PRN Reason: Fever >100.4 F Hydromorphone HCl (Dilaudid) 1 mg IVP Q4 PRN PRN Reason: Pain, severe (8-10) Piperacillin Sod/Tazobactam (Sod 3.375 gm/ Sodium Chloride) 100 mls @ 100 mls/ hr IVPB Q6 IVÁN PRN Reason: Protocol Last Admin: 12/16/17 09:14 Dose: 100 mls/hr Sodium Chloride (Sodium Chloride 0.9%) 1,000 mls @ 125 mls/hr IV .Q8H [facility] Stop: 12/16/17 19:54 Last Admin: 12/16/17 05:00 Dose: Not Given Nicotine (Nicoderm Cq) 1 patch TD DAILY [facility] Last Admin: 12/16/17 09:14 Dose: 1 patch Ondansetron HCl (Zofran Inj) 4 mg IVP Q4 PRN PRN Reason: Nausea/Vomiting Oxycodone/Acetaminophen (Percocet 5/325 Mg Tab) 2 tab PO Q4 PRN PRN Reason: Pain, moderate (4-7) Stop: 12/17/17 15:10 Physical Exam - Respiratory Exam Respiratory Exam: NORMAL BREATHING PATTERN - Cardiovascular Exam Cardiovascular Exam: REGULAR RHYTHM Results - Vital Signs Recent Vital Signs: Last Vital Signs Temp 98.1 F 12/16/17 07:57 Pulse 95 H 12/16/17 07:57 Resp 20 12/16/17 07:57 BP 139/98 H 12/16/17 07:57 Pulse Ox 100 12/16/17 07:57 - Labs Result Diagrams: 12/16/17 05:45 12/16/17 05:45 Labs: Laboratory Results - last 24 hr 12/16/17 12/16/17 12/16/17 05:45 05:45 05:45 WBC 10.4 RBC 5.04 Hgb 14.2 Hct 43.5 MCV 86.3 MCH 28.3 MCHC 32.8 L RDW 14.4 Plt Count 264 PT 15.8 H INR 1.4 H Sodium 137 Potassium 3.8 Chloride 105 Carbon Dioxide 19 L Anion Gap 17 BUN 11 Creatinine 1.1 Est GFR ( Amer) > 60 Est GFR (Non-Af Amer) > 60 Random Glucose 81 Calcium 8.5 Total Bilirubin 1.1 AST 35 ALT 79 H Alkaline Phosphatase 43 Total Protein 5.5 L Albumin 2.9 L Globulin 2.6 Albumin/Globulin Ratio 1.1 Assessment & Plan (1) Cholecystitis Assessment and Plan: The patient is cleared for Surgery Status: Acute
--- NOTE | 2017-12-16 10:34 | CP.PCM.PN ---
<Edilberto Merritt - Last Filed: 12/16/17 10:32> Subjective - Date & Time of Evaluation Date of Evaluation: 12/16/17 Time of Evaluation: 07:40 - Subjective Subjective: Patient seen and examined. Reports abdominal pain has improved. For MRCP this AM. Objective - Vital Signs/Intake and Output Vital Signs (last 24 hours): Temp Pulse Resp BP Pulse Ox 98.1 F 95 H 20 139/98 H 100 12/16/17 07:57 12/16/17 07:57 12/16/17 07:57 12/16/17 07:57 12/16/17 07:57 - Medications Medications: Current Medications Acetaminophen (Tylenol 325mg Tab) 650 mg PO Q6 PRN PRN Reason: Fever >100.4 F Hydromorphone HCl (Dilaudid) 1 mg IVP Q4 PRN PRN Reason: Pain, severe (8-10) Piperacillin Sod/Tazobactam (Sod 3.375 gm/ Sodium Chloride) 100 mls @ 100 mls/ hr IVPB Q6 IVÁN PRN Reason: Protocol Last Admin: 12/16/17 09:14 Dose: 100 mls/hr Sodium Chloride (Sodium Chloride 0.9%) 1,000 mls @ 125 mls/hr IV .Q8H [facility] Stop: 12/16/17 19:54 Last Admin: 12/16/17 05:00 Dose: Not Given Nicotine (Nicoderm Cq) 1 patch TD DAILY [facility] Last Admin: 12/16/17 09:14 Dose: 1 patch Ondansetron HCl (Zofran Inj) 4 mg IVP Q4 PRN PRN Reason: Nausea/Vomiting Oxycodone/Acetaminophen (Percocet 5/325 Mg Tab) 2 tab PO Q4 PRN PRN Reason: Pain, moderate (4-7) Stop: 12/17/17 15:10 - Labs Labs: 12/16/17 05:45 12/16/17 05:45 PT 15.8 Seconds (9.8-13.1) H 12/16/17 05:45 INR 1.4 (0.9-1.2) H 12/16/17 05:45 - Constitutional Appears: No Acute Distress - Head Exam Head Exam: NORMOCEPHALIC - Eye Exam Eye Exam: EOMI, Normal appearance - ENT Exam ENT Exam: Mucous Membranes Moist - Respiratory Exam Respiratory Exam: NORMAL BREATHING PATTERN - Cardiovascular Exam Cardiovascular Exam: +S1, +S2 - GI/Abdominal Exam GI & Abdominal Exam: Soft - Neurological Exam Neurological Exam: Alert, Awake, Oriented x3 - Psychiatric Exam Psychiatric exam: Normal Mood - Skin Skin Exam: Dry, Intact, Warm Assessment and Plan - Assessment and Plan (Free Text) Assessment: 37M with cholecystitis Plan: -NPO -IVF -Abx -F/u MRCP -F/u HIDA -If HIDA + will schedule patient for laparoscopic cholecystectomy tomorrow -Otherwise will have it done outpatient -Further recs per Dr. Ramon [id number] <Higinio Ramon - Last Filed: 12/16/17 11:07> Subjective - Date & Time of Evaluation Time of Evaluation: 09:45 - Subjective Subjective: Patient was seen and examined at the bedside. Agree with resident's note above. Objective - Vital Signs/Intake and Output Vital Signs (last 24 hours): Temp Pulse Resp BP Pulse Ox 98.1 F 95 H 20 139/98 H 100 12/16/17 07:57 12/16/17 07:57 12/16/17 07:57 12/16/17 07:57 12/16/17 07:57 - Medications Medications: Current Medications Acetaminophen (Tylenol 325mg Tab) 650 mg PO Q6 PRN PRN Reason: Fever >100.4 F Hydromorphone HCl (Dilaudid) 1 mg IVP Q4 PRN PRN Reason: Pain, severe (8-10) Piperacillin Sod/Tazobactam (Sod 3.375 gm/ Sodium Chloride) 100 mls @ 100 mls/ hr IVPB Q6 IVÁN PRN Reason: Protocol Last Admin: 12/16/17 09:14 Dose: 100 mls/hr Sodium Chloride (Sodium Chloride 0.9%) 1,000 mls @ 125 mls/hr IV .Q8H [facility] Stop: 12/16/17 19:54 Last Admin: 12/16/17 05:00 Dose: Not Given Nicotine (Nicoderm Cq) 1 patch TD DAILY [facility] Last Admin: 12/16/17 09:14 Dose: 1 patch Ondansetron HCl (Zofran Inj) 4 mg IVP Q4 PRN PRN Reason: Nausea/Vomiting Oxycodone/Acetaminophen (Percocet 5/325 Mg Tab) 2 tab PO Q4 PRN PRN Reason: Pain, moderate (4-7) Stop: 12/17/17 15:10 - Labs Labs: 12/16/17 05:45 12/16/17 05:45 PT 15.8 Seconds (9.8-13.1) H 12/16/17 05:45 INR 1.4 (0.9-1.2) H 12/16/17 05:45 - GI/Abdominal Exam Additional comments: soft, NT, ND, BS+, no rebound, no guarding, negative Todd's sign
--- NOTE | 2017-12-16 12:06 | MRI ---
PROCEDURE: Magnetic Resonance Cholangiopancreatography HISTORY: COMPARISON: Abdomen and pelvis CT examination as well as limited abdomen ultrasound 12/14/2017.. TECHNIQUE: Multiplanar, multisequence MR images of the abdomen were obtained, including heavily T2 weighted MRCP images of the biliary system. Rotating maximum intensity projection images of the biliary system were generated. FINDINGS: MRCP: The common bile duct is of a normal caliber. No evidence of choledocholithiasis. No intrahepatic biliary ductal dilatation. LIVER: No suspicious signal abnormality or contrast enhancement. GALLBLADDER: Gallbladder is mildly distended with pericholecystic fluid reiterated and brisk mural enhancement. No cholelithiasis appreciated this time. Findings remain suspicious for cholecystitis nevertheless. SPLEEN: Unremarkable. PANCREAS: Unremarkable. ADRENALS: Unremarkable. KIDNEYS: Unremarkable. AORTA: No aneurysm. ASCITES: None. OTHER FINDINGS: Mild bilateral pleural effusions are identified greater the right than left sides. IMPRESSION: Findings remain suspicious for cholecystitis. No choledocholithiasis or dilatation of the intra or extrahepatic biliary tree.
[2017-12-16 16:15] VITALS: BP 131/92; PULSE 100; RESP 18; TEMP 97.9; O2SAT 96
--- NOTE | 2017-12-16 16:47 | CARD ---
APPROVED REPORT EKG Measurement Heart [id number] ME [id number] [id number] <Conclusion> Sinus tachycardia Biatrial enlargement T wave abnormality, consider inferolateral ischemia Abnormal ECG
--- NOTE | 2017-12-16 16:57 | CARD ---
APPROVED REPORT EKG Measurement Heart [id number] MA [id number] <Conclusion> Sinus tachycardia Biatrial enlargement T wave abnormality, consider lateral ischemia Abnormal ECG
--- NOTE | 2017-12-16 18:12 | CP.PCM.DIS ---
Provider - Provider Date of Admission: 12/14/17 14:23 Attending physician: Tiffany Phillips MD Time Spent in preparation of Discharge (in minutes): 30 Diagnosis - Discharge Diagnosis (1) Cholecystitis Status: Acute (2) Hypertension Status: Suspected Hospital Course - Lab Results Lab Results: Micro Results 12/14/17 14:40 Blood-Venous Blood Culture - Preliminary NO GROWTH AFTER 48 HOURS Most Recent Lab Values WBC 10.4 K/uL (4.8-10.8) 12/16/17 05:45 RBC 5.04 Mil/uL (4.40-5.90) 12/16/17 05:45 Hgb 14.2 g/dL (12.0-18.0) 12/16/17 05:45 Hct 43.5 % (35.0-51.0) 12/16/17 05:45 MCV 86.3 fl (80.0-94.0) 12/16/17 05:45 MCH 28.3 pg (27.0-31.0) 12/16/17 05:45 MCHC 32.8 g/dL (33.0-37.0) L 12/16/17 05:45 RDW 14.4 % (11.5-14.5) 12/16/17 05:45 Plt Count 264 K/uL (130-400) 12/16/17 05:45 MPV 7.7 fl (7.2-11.7) 12/14/17 10:02 Neut % (Auto) 68.9 % (50.0-75.0) 12/14/17 10:02 Lymph % (Auto) 23.3 % (20.0-40.0) 12/14/17 10:02 Carlton % (Auto) 7.0 % (0.0-10.0) 12/14/17 10:02 Eos % (Auto) 0.1 % (0.0-4.0) 12/14/17 10:02 Baso % (Auto) 0.7 % (0.0-2.0) 12/14/17 10:02 Neut # (Auto) 8.0 K/uL (1.8-7.0) H 12/14/17 10:02 Lymph # (Auto) 2.7 K/uL (1.0-4.3) 12/14/17 10:02 Carlton # (Auto) 0.8 K/uL (0.0-0.8) 12/14/17 10:02 Eos # (Auto) 0.0 K/uL (0.0-0.7) 12/14/17 10:02 Baso # (Auto) 0.1 K/uL (0.0-0.2) 12/14/17 10:02 PT 15.8 Seconds (9.8-13.1) H 12/16/17 05:45 INR 1.4 (0.9-1.2) H 12/16/17 05:45 Sodium 137 mmol/l (132-148) 12/16/17 05:45 Potassium 3.8 MMOL/L (3.6-5.0) 12/16/17 05:45 Chloride 105 mmol/L (98-107) 12/16/17 05:45 Carbon Dioxide 19 mmol/L (22-30) L 12/16/17 05:45 Anion Gap 17 (10-20) 12/16/17 05:45 BUN 11 mg/dl (9-20) 12/16/17 05:45 Creatinine 1.1 mg/dl (0.8-1.5) 12/16/17 05:45 Est GFR ( Amer) > 60 12/16/17 05:45 Est GFR (Non-Af Amer) > 60 12/16/17 05:45 POC Glucose (mg/dL) 83 mg/dL (65-110) 12/14/17 09:47 Random Glucose 81 mg/dL (75-110) 12/16/17 05:45 Calcium 8.5 mg/dL (8.4-10.2) 12/16/17 05:45 Total Bilirubin 1.1 mg/dl (0.2-1.3) 12/16/17 05:45 AST 35 U/L (17-59) 12/16/17 05:45 ALT 79 U/L (21-72) H 12/16/17 05:45 Alkaline Phosphatase 43 U/L (38-126) 12/16/17 05:45 Troponin I 0.0190 ng/mL (0.00-0.120) 12/15/17 07:10 Total Protein 5.5 G/DL (6.3-8.2) L 12/16/17 05:45 Albumin 2.9 g/dL (3.5-5.0) L 12/16/17 05:45 Globulin 2.6 gm/dL (2.2-3.9) 12/16/17 05:45 Albumin/Globulin Ratio 1.1 (1.0-2.1) 12/16/17 05:45 Triglycerides 112 mg/DL (0-149) 12/15/17 05:30 Cholesterol 159 mg/dL (0-199) 12/15/17 05:30 LDL Cholesterol Direct 116 mg/dL (0-129) 12/15/17 05:30 HDL Cholesterol 28 MG/DL (30-70) L 12/15/17 05:30 Lipase 48 U/L (23-300) 12/14/17 10:02 - Hospital Course Hospital Course: 37 yo male with a pmhx of ETOH use disorder, tobacco use disorder presents to [facility] ED on 12/14/17 c/o epigastric abdominal pain started 3 weeks ago, intermittent , 5/10 intensity, not radiated, postprandial, associated with occs nausea, 1 nonbloddy vomiting today, heartburn and mild SOB when in pain . Pain is worse with food, on exertion while working, and on when turning to left in lying down position. He denies fever, chest pain,cough,dysuria,hx/o gastritis, odd food ingestion, h/xo chest pain. Pt was admitted for suspected cholecystitis. CT of abdomen and pelvis showed findings that are suspicious for cholecystitis. Pt's LFT were mildly elevated, MRCP was done which showed cholecytitis but no gallstone or bile duct pathology. HIDA scan (preliminary findings) was negative for cholecystitis. Pt's vitals has been stable and afebrile. Pt was able to tolerate regular diet today and stable to discharge home w/ f/u with outpatient surgery for elective lap jared. Discharge medications: none given Discharge Exam - Head Exam Head Exam: NORMOCEPHALIC Discharge Plan - Follow Up Plan Condition: STABLE Disposition: HOME/ ROUTINE Instructions: Gallstones (DC), Hypertension (DC), Hypertension (GEN) Additional Instructions: Please call [facility] - [phone] for follow-up appointment
--- NOTE | 2017-12-17 09:36 | NM ---
PROCEDURE: Nuclear Medicine Hepatobiliary Scan HISTORY: r/o cholecystitis COMPARISON: 12/14/2012 abdominal ultrasound TECHNIQUE: 6.3 mCi of technetium 99m Mebrofenin was administered intravenously. Planar images of the abdomen were obtained at 5 min intervals to 60 mins. Delayed images were also obtained. FINDINGS: LIVER: Timely and homogenous uptake. COMMON BILE DUCT: identified at 5 mins. GALLBLADDER: identified at 5 mins. SMALL BOWEL: Identified at 30 mins. IMPRESSION: Normal Hepatobiliary Scan. The cystic duct is patent.
== END 2017-12-16 19:00 | disposition home or self-care (01) | DRG 208 ==
LOC: H.ER 09:06 → H.ERHOLD 14:23 → H.MEDSURG1 16:06
PROVIDERS: ADMIT Family Medicine Geriatric Medicine; ATTEND Family Medicine Geriatric Medicine
DX: K80.00 Calculus of gallbladder with acute cholecystitis without obstruction (principal); F10.10 Alcohol abuse, uncomplicated; I10 Essential (primary) hypertension; F17.210 Nicotine dependence, cigarettes, uncomplicated; R74.0 Nonspecific elevation of levels of transaminase and lactic acid dehydrogenase [LDH]; R94.31 Abnormal electrocardiogram [ECG] [EKG]

== ENCOUNTER 2018-06-18 06:07 | Emergency (ER) | payer OTHER ==
[2018-06-18 06:07] VITALS: BMI 30.2
[2018-06-18 07:43] LABS: BASO # 0.1 K/uL (0.0-0.2); BASO % 0.8 % (0.0-2.0); EOS # 0.1 K/uL (0.0-0.7); EOS % 0.5 % (0.0-4.0); HEMOGLOBIN 13.9 g/dL (12.0-18.0); LYMPH # 1.9 K/uL (1.0-4.3); LYMPH % 16.5 % (20.0-40.0); MEAN CELL VOLUME 88.3 fl (80.0-94.0); MEAN CORPUSCULAR HEMOGLOBIN 28.9 pg (27.0-31.0); MEAN CORPUSCULAR HGB CONC 32.7 g/dL (33.0-37.0); MEAN PLATELET VOLUME 8.9 fl (7.2-11.7); MONO # 0.8 K/uL (0.0-0.8); NEUT # 8.6 K/uL (1.8-7.0); NEUT % 75.2 % (50.0-75.0); RBC 4.81 Mil/uL (4.40-5.90); RED CELL DISTRIBUTION WIDTH 15.6 % (11.5-14.5); WHITE BLOOD COUNT 11.4 K/uL (4.8-10.8)
--- NOTE | 2018-06-18 07:48 | ED PDOC ---
HPI: Abdomen Time Seen by Provider: 06/18/18 07:03 Chief Complaint (Nursing): Abdominal Pain Chief Complaint (Provider): Abdominal Pain History Per: Patient History/Exam Limitations: no limitations Onset/Duration Of Symptoms: Hrs Current Symptoms Are (Timing): Still Present Location Of Pain/Discomfort: RUQ, RLQ Quality Of Discomfort: Sharp, Cramping Associated Symptoms: Nausea. denies: Chills, Vomiting, Diarrhea Additional Complaint(s): Jorge Das is a 37 year old male with a past medical history of hypertension, hyperlipidemia, and congestive heart failure who is presenting to the ED for evaluation of non-radiating right sided abdominal pain onset 1 hour ago. Patient states that he was sleeping and the sharp cramping pain woke him up and he was unable to walk. He reports that he lives with his cousin who helped him up and states that he ate normally yesterday. Patient describes feeling like he was burning up and reports mild nausea. He denies any vomiting, diarrhea, chills, or shortness of breath. PMD: none provided Learning Specialist: Dr. Sánchez Basilio Past Medical History Reviewed: Historical Data, Nursing Documentation, Vital Signs Vital Signs: Last Vital Signs Temp 99.7 F H 06/18/18 06:33 Pulse 92 H 06/18/18 06:33 Resp 20 06/18/18 06:33 BP 104/68 06/18/18 06:33 Pulse Ox 98 06/18/18 06:33 - Medical History PMH: CHF, Gall Bladder Disease (choleystitis), HTN, Hyperlipidemia Denies: Chronic Kidney Disease - Surgical History Surgical History: Pacemaker - Family History Family History: States: Unknown Family Hx - Social History Current smoker - smoking cessation education provided: No Ex-Smoker (has not smoked in the last 12 months): Yes Alcohol: None Drugs: Denies - Immunization History Hx Tetanus Toxoid Vaccination: No Hx Influenza Vaccination: No Hx Pneumococcal Vaccination: No - Home Medications Home Medications: Ambulatory Orders Medication Instructions Recorded Aspirin [Aspirin Chewable] 81 mg PO DAILY #30 chew 06/15/18 Carvedilol [Coreg] 6.25 mg PO BID #60 tab 06/15/18 Furosemide [Lasix] 40 mg PO BID #60 tab 06/15/18 Lisinopril [Zestril] 20 mg PO DAILY #30 tab 06/15/18 Rosuvastatin Calcium [Crestor] 5 mg PO QPM #30 tab 06/15/18 Spironolactone [Aldactone] 50 mg PO DAILY #30 tab 06/15/18 Naproxen [Naprosyn] 500 mg PO BID PRN #20 tablet 06/18/18 - Allergies Allergies/Adverse Reactions: Allergies Allergy/AdvReac Type Severity Reaction Status Date / Time No Known Allergies Allergy Verified 06/13/18 09:55 Review of Systems ROS Statement: Except As Marked, All Systems Reviewed And Found Negative Constitutional: Positive for: Fever ("burning up"). Negative for: Chills Respiratory: Negative for: Shortness of Breath Gastrointestinal: Positive for: Nausea, Abdominal Pain. Negative for: Vomiting, Diarrhea Physical Exam - Reviewed Nursing Documentation Reviewed: Yes Vital Signs Reviewed: Yes - Physical Exam Appears: Positive for: Non-toxic, No Acute Distress Head Exam: Positive for: ATRAUMATIC, NORMAL INSPECTION, NORMOCEPHALIC Skin: Positive for: Normal Color, Warm, DRY Eye Exam: Positive for: EOMI, Normal appearance, PERRL ENT: Positive for: Normal ENT Inspection Neck: Positive for: Normal, Painless ROM, Supple Cardiovascular/Chest: Positive for: Regular Rate, Rhythm. Negative for: Murmur Respiratory: Positive for: Normal Breath Sounds. Negative for: Respiratory Distress Gastrointestinal/Abdominal: Positive for: Soft, Tenderness (mild tenderness to right lower quadrant, more than left), Distended (mild), Other (diminished bowel sounds). Negative for: Rebound (no rebound tenderness) Back: Positive for: Normal Inspection. Negative for: L CVA Tenderness, R CVA Tenderness, Vertebral Tenderness Extremity: Positive for: Normal ROM. Negative for: Deformity, Swelling Neurologic/Psych: Positive for: Alert, Oriented. Negative for: Motor/Sensory Deficits - Laboratory Results Result Diagrams: 06/18/18 07:30 06/18/18 07:30 - ECG O2 Sat by Pulse Oximetry: 98 (RA) Pulse Ox Interpretation: Normal - Radiology X-Ray: Read By Radiologist X-Ray Interpretation: No Acute Disease - Progress Re-evaluation Time: 11:50 Condition: Re-examined, Improving,but remains with symptoms (patient still has on/off pain in the same area) Medical Decision Making Medical Decision Making: Time: 7:24 Impression: Abdominal Pain, right lower quadrant Differentials: Appendicitis, bowel obstruction, constipation Plan: --VBG Shock Panel --CMP --Lipase --ED Urine Dipstick --CBC --X-Ray Obstruction Series Scribe Attestation: Documented by, Sarah Howe acting as a scribe for Lyssa Hassan MD. Provider Scribe Attestation: All medical record entries made by the Scribe were at my direction and personally dictated by me. I have reviewed the chart and agree that the record accurately reflects my personal performance of the history, physical exam, medical decision making, and the department course for this patient. I have also personally directed, reviewed, and agree with the discharge instructions and disposition. Disposition - Clinical Impression Clinical Impression: Abdominal discomfort - Patient ED Disposition Is Patient to be Admitted: No Doctor Will See Patient In The: Office Counseled Patient/Family Regarding: Diagnosis - Disposition Referrals: Sánchez Basilio MD [Staff Provider] - Disposition: Routine/Home Disposition Time: 12:16 Condition: IMPROVED Additional Instructions: Please return to the closest ER if pain becomes more pronounced or severe. Prescriptions: Naproxen [Naprosyn] 500 mg PO BID PRN #20 tablet PRN Reason: Pain, Moderate (4-7) Instructions: Acute Abdomen (Belly Pain), Adult (DC) Forms: [email or web address] (L[place]uanian) - POA Present On Arrival: None
[2018-06-18 07:54] LABS: ALB/GLOB RATIO 1.3 (1.0-2.1); ALBUMIN 4.3 g/dL (3.5-5.0); BLOOD UREA NITROGEN 27 mg/dl (9-20); CALCIUM 9.5 mg/dL (8.4-10.2); GFR NON-AFRICAN AMERICAN > 60; LIPASE 102 U/L (23-300)
[2018-06-18 08:05] LABS: ALT/SGPT 35 U/L (21-72); AST/SGOT 50 U/L (17-59)
[2018-06-18 08:08] LABS: VENOUS BLOOD GAS BASE EXCESS -3.4 mmol/L (0.0-2.0); VENOUS BLOOD GAS PCO2 37 mmHg (40-60); VENOUS BLOOD GAS PO2 65 mm/Hg (30-55); VENOUS BLOOD PH 7.37 (7.32-7.43)
[2018-06-18] MEDS ORDERED: Iohexol 300 100 ML IJ ONE (09:41)
[2018-06-18] MEDS ORDERED: Sodium Chloride 0.9% 50 ML IV ONE (09:41)
--- NOTE | 2018-06-18 10:38 | RAD ---
Date of service: 06/18/2018 PROCEDURE: Radiographs of the chest and abdomen (obstructive series) HISTORY: RLQ pain x1h; better now; dec'd bowel sounds COMPARISON: 12/14/2017 TECHNIQUE: AP radiograph of the chest, with upright and supine radiographs of the abdomen. FINDINGS: CHEST: Lungs: Clear. Cardiovascular: Normal size heart. No pulmonary vascular congestion. No aortic atherosclerotic calcification present Pleura: No pleural fluid. No pneumothorax. Other findings: None. ABDOMEN AND PELVIS: Bowel: The bowel gas pattern is nonspecific. No evidence of bowel dilatation or differential air-fluid levels. No evidence of mechanical obstruction. Free air: None. Bones: Unremarkable. Other findings: None. IMPRESSION: Nonobstructive nonspecific bowel gas pattern. Clear lungs with
--- NOTE | 2018-06-18 11:20 | CT ---
Date of service: 06/18/2018 PROCEDURE: CT Abdomen and Pelvis with contrast HISTORY: RLQ tenderness; WBC 11 COMPARISON: 12/14/2017. TECHNIQUE: CT scan of the abdomen and pelvis was performed after administration of intravenous contrast. Oral contrast was administered. Coronal and sagittal reformatted images were obtained. Contrast dose: 95 mL Omnipaque 300 Radiation dose: Total exam DLP = 821.73 mGy-cm. This CT exam was performed using one or more of the following dose reduction techniques: Automated exposure control, adjustment of the mA and/or kV according to patient size, and/or use of iterative reconstruction technique. FINDINGS: LOWER THORAX: There is focal linear scarring/subpleural fibrosis in the right lung base. The visualized left lung is clear. LIVER: Normal in size with homogeneous enhancement. Diffuse fatty liver. No gross lesion or ductal dilatation. GALLBLADDER AND BILE DUCTS: Well distended. No calcified gallstones, wall thickening or pericholecystic fluid. PANCREAS: Normal in size with homogeneous enhancement. No gross lesion or ductal dilatation. SPLEEN: Normal in size and appearance. ADRENALS: Stable subcentimeter nodule in the right adrenal gland. The left adrenal gland is normal. KIDNEYS AND URETERS: The right kidney is normal in size. There are multifocal parenchymal triangular areas of decreased attenuation, the largest in the upper pole. The left kidney is normal in size. There is a small triangular peripheral area of diminished attenuation in the lower pole. No perinephric fat stranding or fluid collection. No hydronephrosis or nephrolithiasis. VASCULATURE: No aortic aneurysm. BOWEL: Evaluation of the bowel is limited in the absence of oral contrast. The small bowel loops are normal in caliber. The colon is grossly normal in appearance. No bowel wall thickening or obstruction. APPENDIX: Normal appendix. PERITONEUM: No free fluid. No free air. LYMPH NODES: No enlarged lymph nodes. BLADDER: Well distended and normal in appearance. REPRODUCTIVE: The prostate gland is normal in size. BONES: No acute fracture. Within normal limits for the patient's. Age. OTHER FINDINGS: None. IMPRESSION: 1. Multifocal triangular areas of diminished enhancement in the right kidney, the largest in the right upper pole and a smaller area in the peripheral left lower pole concerning for pyelonephritis. Please correlate with urine analysis. 2. No CT evidence for acute appendicitis. 3. Fatty liver.
[2018-06-18 12:38] VITALS: BP 112/70; PULSE 102; RESP 18; TEMP 97.4; O2SAT 96
== END 2018-06-18 12:35 | disposition home or self-care (01) ==
LOC: H.ER 06:07
DX: R10.31 Right lower quadrant pain (principal); R10.11 Right upper quadrant pain; E78.5 Hyperlipidemia, unspecified; I11.0 Hypertensive heart disease with heart failure; Z95.0 Presence of cardiac pacemaker
CPT/HCPCS: 74022; 74177; 80053; 82803; 83690; 85025; 99285; Q9967